=== PATIENT | male | born 2000 | race Caucasian/White ===

== ENCOUNTER 2025-02-07 04:34 | Day surgery (SDC) | payer OTHER ==
[~2025-02-07] VITALS: Ht 170.2 cm; Wt 57.0 kg
[2025-02-07] VITALS (225 sets, daily range): BP systolic 87–151; BP diastolic 53–112
[2025-02-07] MEDS ORDERED: DEXMEDETOMIDINE HCL IN SODIUM 100 ML IV SCH (07:25)
[2025-02-07] MEDS ORDERED: LACTATED RINGER'S 1,000 ML IV PRN ×2 (07:30→09:40)
[2025-02-07] MEDS ORDERED: cloNIDine HCL 0.1 MG/TAB PO PRN (07:30)
[2025-02-07] MEDS ORDERED: SCOPOLAMINE 1.5 MG DIS TD PRN (07:30)
[2025-02-07] MEDS ORDERED: SODIUM CHLORIDE 0.9% 1,000 ML IV PRN ×3 (07:30→14:30)
[2025-02-07] MEDS ORDERED: CYANOCOBALAMIN 500 MCG/TAB ( B12) PO PRN (07:30)
[2025-02-07] MEDS ORDERED: PANTOPRAZOLE SODIUM Sesquihydr 40 MG/TAB PO PRN (07:30)
[2025-02-07] MEDS ORDERED: diazePAM 5 MG/TAB PO PRN ×2 (07:30→08:30)
[2025-02-07] MEDS ORDERED: ALBUTEROL SULFATE 2.5 MG VIAL IN PRN (07:30)
[2025-02-07] MEDS ORDERED: FAMOTIDINE 20 MG/TAB PO PRN (07:30)
[2025-02-07] MEDS ORDERED: ASCORBIC ACID 4,000 MG in SODIUM CHLORIDE 0.9% 1,000 ML IV SCH (08:00)
[2025-02-07 09:15] LABS: BASO% 0.6 % (0-3); HEMATOCRIT 43.1 % (39.0-50.0); HEMOGLOBIN 14.9 g/dl (14.0-18.0); IMMATURE GRANULOCYTES 0.1 % (0.0-5.0); LYMPH% 27.2 % (15-41); MEAN CORPUSCULAR HGB 30.8 pG CALC (26.0-32.0); MEAN CORPUSCULAR HGB CONC 34.6 g/dL CAL (32.0-36.0); MONO% 5.5 % (2-13); NEUT# 5.58 thou/uL (1.82-7.42); NEUT% 56.6 % (42-76); RED BLOOD COUNT 4.84 mill/uL (4.70-6.10); RED CELL DISTRI WIDTH 11.7 % (11.5-15.5)
[2025-02-07] MEDS ORDERED: ONDANSETRON 4 MG/TAB ODT SL SCH (09:15)
[2025-02-07 09:29] LABS: ALBUMIN 4.6 g/dL (3.2-5.0); BILIRUBIN, TOTAL 0.5 mg/dL (0.2-1.3); CREATININE 0.8 mg/dL (0.7-1.3); POTASSIUM 4.3 mmol/l (3.5-5.1); TOTAL PROTEIN 7.4 g/dL (6.3-8.2)
[2025-02-07] MEDS ORDERED: NALTREXONE HCL 50 MG/TAB VT PRN (09:40)
[2025-02-07] MEDS ORDERED: POTASSIUM CHLORIDE 20 MEQ/100 ML BAG IV PRN (09:40)
[2025-02-07] MEDS ORDERED: PROPOFOL 100 ML IV PRN (09:40)
[2025-02-07] MEDS ORDERED: LIDOCAINE HCL 1% (10MG/ML) 100 MG/10 ML MDV VT PRN ×2 (09:40)
[2025-02-07] MEDS ORDERED: ONDANSETRON HCl 4 MG/2 ML SDV IV PRN ×3 (09:40→19:00)
[2025-02-07] MEDS ORDERED: ROCURONIUM BROMIDE 10 MG/ML 5 ML VIAL IV PRN (09:40)
[2025-02-07] MEDS ORDERED: cloNIDine HCL 0.1 MG/TAB VT PRN (09:40)
[2025-02-07] MEDS ORDERED: DiphenhydrAMINE HCL 50 MG/ML SDV IV PRN (09:40)
[2025-02-07] MEDS ORDERED: diazePAM 5 MG/TAB VT PRN (09:40)
[2025-02-07] MEDS ORDERED: SUCCINYLCHOLINE CHLORIDE 20 MG/ML 10ML VIAL IV PRN (09:40)
[2025-02-07] MEDS ORDERED: MIDAZOLAM HCL 2 MG/2 ML VIAL IV PRN ×3 (09:40→14:30)
[2025-02-07] MEDS ORDERED: PROPOFOL 10 MG/ML 100ML VIAL IV PRN (09:40)
[2025-02-07] MEDS ORDERED: MAGNESIUM SULFATE HEPTAHYDRATE 100 ML IV PRN (09:40)
[2025-02-07] MEDS ORDERED: LIDOCAINE HCL 1% (10MG/ML) 100 MG/10 ML MDV IV PRN (09:40)
[2025-02-07] MEDS ORDERED: OCTREOTIDE ACETATE 100 MCG/VIAL SDV SC PRN (09:40)
[2025-02-07] MEDS ORDERED: THIAMINE HCL 100 MG/ML 2ML VIAL IV PRN (09:40)
[2025-02-07] MEDS ORDERED: STERILE WATER FOR IRRIGATION 1,000 ML BTL IR PRN (09:40)
[2025-02-07] MEDS ORDERED: cloNIDine HYDROCHLORIDE 100 MCG/ML 10 ML INJ IV PRN (09:40)
[2025-02-07] MEDS ORDERED: NALTREXONE50 MG PO (12:42)
[2025-02-07] MEDS ORDERED: KLONOPIN2 MG PO (12:43)
[2025-02-07] MEDS ORDERED: CLONIDINE0.1 MG PO (12:43)
[2025-02-07] MEDS ORDERED: PROMETHAZINE HCL 25 MG in SODIUM CHLORIDE 0.9% 50 ML IV PRN (19:00)
[2025-02-07] MEDS ORDERED: PROMETHAZINE HCL 12.5 MG in SODIUM CHLORIDE 0.9% 50 ML IV PRN (19:00)
[2025-02-07] MEDS ORDERED: HALOPERIDOL LACTATE 5 MG/ML SDV IV PRN (19:00)
[2025-02-07] MEDS ORDERED: ACETAMINOPHEN 500 MG TAB PO PRN (19:00)
[2025-02-07] MEDS ORDERED: ACETAMINOPHEN 1,000 MG/100 ML VIAL IV PRN (19:00)
[2025-02-07] MEDS ORDERED: KETOROLAC TROMETHAMINE 30 MG/ML SDV IV PRN (19:00)
[2025-02-07] MEDS ORDERED: HALOPERIDOL LACTATE 5 MG/ML SDV ONE (20:39)
[2025-02-07] MEDS ORDERED: HALOPERIDOL LACTATE 5 MG/ML SDV IV SCH (20:50)
[2025-02-07] MEDS ORDERED: PATIENT' OWN MED CONTROLLED 1 EA DOSE IV PRN (21:00)
[2025-02-07] MEDS ORDERED: diazePAM 5 MG/TAB PO SCH (22:05)
[2025-02-07] MEDS ORDERED: diazePAM 10 MG/2 ML VIAL IV SCH (22:05)
[2025-02-07] MEDS ORDERED: cloNIDine HCL 0.1 MG/TAB PO SCH ×2 (22:05→23:00)
[2025-02-07] MEDS ORDERED: clonazePAM 1 MG/TAB PO PRN (23:00)
[2025-02-08 03:03] VITALS: BP 118/78
[2025-02-08] MEDS ORDERED: clonazePAM 1 MG/TAB PO PRN ×3 (04:00→13:40)
[2025-02-08] MEDS ORDERED: NALTREXONE HCL 50 MG/TAB PO SCH (04:00)
[2025-02-08] MEDS ORDERED: cloNIDine HCL 0.1 MG/TAB PO PRN ×3 (04:00→13:45)
[2025-02-08 05:23] LABS: ALBUMIN 3.7 g/dL (3.2-5.0); CREATININE 0.8 mg/dL (0.7-1.3); POTASSIUM 3.5 mmol/l (3.5-5.1)
[2025-02-08 05:27] LABS: BILIRUBIN, TOTAL 0.9 mg/dL (0.2-1.3); TOTAL PROTEIN 5.9 g/dL (6.3-8.2)
[2025-02-08 05:44] LABS: BASO% 0.2 % (0-3); IMMATURE GRANULOCYTES 0.2 % (0.0-5.0); LYMPH% 18.3 % (15-41); MEAN CELL VOLUME 89.1 fL CALC (80.0-100.0); MEAN CORPUSCULAR HGB 31.5 pG CALC (26.0-32.0); MEAN CORPUSCULAR HGB CONC 35.3 g/dL CAL (32.0-36.0); MONO% 2.8 % (2-13); NEUT# 4.45 thou/uL (1.82-7.42); NEUT% 78.5 % (42-76); RED BLOOD COUNT 3.75 mill/uL (4.70-6.10); RED CELL DISTRI WIDTH 11.7 % (11.5-15.5)
[2025-02-08 05:57] LABS: HEMATOCRIT 33.4 % (39.0-50.0); HEMOGLOBIN 11.8 g/dl (14.0-18.0)
[2025-02-08 07:43] VITALS: BP 124/69
[2025-02-08] MEDS ORDERED: POTASSIUM CHLORIDE 20 MEQ/TAB PO SCH (08:00)
[2025-02-08] MEDS ORDERED: cloNIDine HCL 0.1 MG/TAB PO SCH (08:00)
[2025-02-08] MEDS ORDERED: PANTOPRAZOLE SODIUM Sesquihydr 40 MG/TAB PO SCH (08:00)
[2025-02-08] MEDS ORDERED: ACETAMINOPHEN 325 MG/TAB PO SCH (08:00)
[2025-02-08] MEDS ORDERED: ACETAMINOPHEN 500 MG TAB PO PRN (09:00)
[2025-02-08] MEDS ORDERED: Cholecalciferol 2,000 UNIT/TAB PO PRN (09:00)
[2025-02-08] MEDS ORDERED: MAGNESIUM OXIDE 400 MG/TAB PO PRN (09:00)
[2025-02-08] MEDS ORDERED: LACTATED RINGER'S 1,000 ML IV PRN (19:00)
[2025-02-08 21:55] VITALS: BP 142/70
[2025-02-09 03:15] VITALS: BP 140/83
[2025-02-09] MEDS ORDERED: NALTREXONE HCL 50 MG/TAB PO SCH (04:00)
[2025-02-09 06:26] LABS: ALBUMIN 4.1 g/dL (3.2-5.0); BILIRUBIN, TOTAL 0.7 mg/dL (0.2-1.3); CREATININE 0.7 mg/dL (0.7-1.3); MAGNESIUM 1.9 mg/dL (1.6-2.3); POTASSIUM 3.1 mmol/l (3.5-5.1); TOTAL PROTEIN 6.4 g/dL (6.3-8.2)
[2025-02-09 06:27] LABS: BASO% 0.1 % (0-3); HEMATOCRIT 34.4 % (39.0-50.0); HEMOGLOBIN 12.5 g/dl (14.0-18.0); IMMATURE GRANULOCYTES 0.2 % (0.0-5.0); LYMPH% 17.9 % (15-41); MEAN CELL VOLUME 88.4 fL CALC (80.0-100.0); MEAN CORPUSCULAR HGB 32.1 pG CALC (26.0-32.0); MEAN CORPUSCULAR HGB CONC 36.3 g/dL CAL (32.0-36.0); MONO% 5.6 % (2-13); NEUT# 6.71 thou/uL (1.82-7.42); NEUT% 76.2 % (42-76); RED BLOOD COUNT 3.89 mill/uL (4.70-6.10); RED CELL DISTRI WIDTH 11.9 % (11.5-15.5)
[2025-02-09 06:43] VITALS: BP 133/111
[2025-02-09] MEDS ORDERED: POTASSIUM CHLORIDE 20 MEQ/TAB PO SCH ×2 (08:30→09:30)
== END 2025-02-09 09:09 | disposition left against medical advice (07) | DRG 894 ==
LOC: EDBD 04:34 → MS2 04:34 → ANR 04:34 → MS2 16:55 → ANR 02-09 09:09
PROVIDERS: ATTEND Anesthesiology
DX: F11.20 Opioid dependence, uncomplicated (principal)
CPT/HCPCS: J1100; J1200; J1630; J2354; J2405; J2550; J2704; J3360; J3475; J3480; J3490